=== PATIENT | male | born 1990 | race Caucasian/White ===

== ENCOUNTER 2023-02-16 17:06 | Emergency (ER) | payer OTHER, SELFPAY ==
[2023-02-16 17:08] VITALS: BP 164/117; PULSE 77; RESP 18; TEMP 37; O2SAT 95
--- NOTE | 2023-02-16 17:15 | DI.RAD_ITS ---
Exam(s) XR HAND RT COMPLETE EXAM: XR HAND RT COMPLETE CLINICAL HISTORY: hand trauma. TECHNIQUE: 2D digital imaging was performed. Three views. COMPARISON: No exams were available for comparison FINDINGS: BONES: No acute fracture is present. Old fracture base 3rd metacarpal. No bony destructive lesion i s seen. JOINTS: No dislocation present. SOFT TISSUE: Soft tissue laceration with some air at the thenar eminence. No foreign body. IMPRESSION: Soft tissue laceration. DATA REPOSITORY: RADIATION DOSE DELIVERED:
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
[2023-02-16] MEDS: Acetaminophen 500 MG TAB 1000 MG PO (17:48)
[2023-02-16] MEDS: Sulfameth/Trimeth DS TAB 1 TAB PO (17:48)
[2023-02-16] MEDS: Povidone-Iodine Soln. 118 ML BTL (17:48)
--- NOTE | 2023-02-16 19:24 | DI.VRAD_ITS ---
PROCEDURE INFORMATION: Exam: XR Right Hand Exam date and time: 02/16/2023 6:23 PM Age: 32 years old Clinical indication: Injury or trauma; Other: Hand trauma; Laceration; Right TECHNIQUE: Imaging protocol: Radiologic exam of the right hand. Views: 3 or more views. COMPARISON: No relevant prior studies available. FINDINGS: Bones/joints: No acute fracture or dislocation Soft tissues: Laceration in the thenar eminence. No radiopaque foreign body IMPRESSION: No acute fracture Laceration as described Dictated and Authenticated by: Ady Gil MD. Ordering:[facility] Lamine Cano MD
[2023-02-16 20:02] VITALS: BP 110/80; PULSE 80; RESP 16; TEMP 36.7; O2SAT 100
--- NOTE | 2023-02-18 10:49 | NUR.NOTE ---
Accessed Patients chart to obtain information to complete the [facility] document.:
== END 2023-02-16 20:02 | disposition home or self-care (01) ==
LOC: ER 19:49
PROVIDERS: Emergency Provider Emergency Medicine
DX: M25.541 Pain in joints of right hand (principal); S61.411A Laceration without foreign body of right hand, initial encounter
CPT/HCPCS: 12032; 29125; 73130